=== PATIENT | female | born 2000 | race Two or more races ===

== ENCOUNTER 2021-03-05 18:30 | Emergency (ER) | payer OTHER ==
[~2021-03-05] VITALS: Ht 162.6 cm; Wt 54.9 kg
[2021-03-05] MEDS ORDERED: DOLOGEN 325-11 EACH PO (20:17)
== END 2021-03-05 20:22 | disposition home or self-care (01) ==
LOC: ER 18:30 → EMR PED 19:08 → ER 19:08 → EMR PED 20:22
DX: G44.209 Tension-type headache, unspecified, not intractable (principal); Z11.52 Encounter for screening for COVID-19